=== PATIENT | male | born 1965 | race Caucasian/White ===

== ENCOUNTER 2018-06-11 07:21 | Outpatient (CLI) | payer BC ==
--- NOTE | 2018-06-11 10:05 | CT ---
CT OF ABDOMEN AND PELVIS PERFORMED WITH INTRAVENOUS CONTRAST ENHANCEMENT: History: Right lower quadrant pain. History of colon cancer in 2012 with a partial colectomy and chem otherapy. Comparison: 10-21-12 FINDINGS: The lung bases are clear. The liver and spleen are within normal limits in size and appearance. The pancreas and gallbladder re gions appear unremarkable. The right adrenal gland is normal. There is some slight nodularity to the left adrenal which is stabl e. This nodular area measures approximately 11 mm in size and is not felt to be significantly differe nt than the prior study. The right and left kidneys are normal in appearance. There are hypodensities involving both kidneys which all appear essentially stable in size. One hypodense lesion in the lowe r pole of the left kidney is increased slightly in size. CT Hounsfield unit numbers are slightly high er than typical for a cyst but given the multiplicity of these lesions it is still most likely felt t o represent cysts. There is no significant periaortic or mesenteric adenopathy. Post-operative change s of the right colon are again demonstrated. I do not see any signs of any mass or evidence of obstru ction. CT OF PELVIS PERFORMED WITH CONTRAST ENHANCEMENT: No evidence of adenopathy, mass, or free fluid. Suggestion of some slight bladder wall thickening. Th ere is a moderately prominent prostate. IMPRESSION: 1. Post-operative changes of the right colon. There is a moderate amount of stool present in the righ t colon. 2. Stable left adrenal nodule. 3. Hypodensities involving the kidneys, statistically most likely cysts. POS: [facility]
[2018-06-11] MEDS ORDERED: ISOVUE-370 76%-LOCM 1 ML ONE (10:32)
== END 2018-06-11 07:22 | disposition home or self-care (01) ==
LOC: BICCT 07:21
PROVIDERS: ATTEND Internal Medicine Gastroenterology
DX: R10.31 Right lower quadrant pain (principal); R19.4 Change in bowel habit; R19.5 Other fecal abnormalities; E27.9 Disorder of adrenal gland, unspecified; N28.89 Other specified disorders of kidney and ureter; Z85.038 Personal history of other malignant neoplasm of large intestine; Z98.890 Other specified postprocedural states
CPT/HCPCS: 74177

== ENCOUNTER 2018-12-30 13:44 | Outpatient (CLI) | payer BC ==
--- NOTE | 2018-12-30 15:32 | CT ---
CT CERVICAL SPINE WITHOUT CONTRAST: Multiplanar, multisequential imaging of the cervical spine is obtained. INDICATION: Right cervical radiculopathy. FINDINGS: The cervical vertebrae maintain normal height and alignment. There are mild degenerative changes not ed. There are mild anterior osteophytes From the cervical vertebrae. Mild loss of disk space at all levels of the cervical spine. There is no evidence of cervical spine fracture. Mild disk bulge at C2-3 mildly flattens the thecal sac. No evidence of central canal or foraminal st enosis. At C3-4, mild disk bulge effaces the anterior subarachnoid space. No evidence of cord impingement or cervical canal stenosis. Mild left foraminal narrowing due to uncinate hypertrophy. At C4-5, mild disk bulge effaces the anterior subarachnoid space. Mild left foraminal narrowing due to uncinate hypertrophy. No evidence of cervical canal stenosis. At C5-6, mild disk bulge flattens the thecal sac and effaces the anterior subarachnoid space. No sig nificant cord impingement. No significant cervical spine or foraminal stenosis. At C6-7, no significant disk bulge or spondylosis. No cervical canal or foraminal stenosis. At C7-T1, no significant abnormality apparent. IMPRESSION: Mild degenerative change of the cervical spine. Mild disk bulge at several levels as described above . POS: [facility]
== END 2018-12-30 13:45 | disposition home or self-care (01) ==
LOC: BICCT 13:44
PROVIDERS: ATTEND Internal Medicine
DX: M47.22 Other spondylosis with radiculopathy, cervical region (principal)
CPT/HCPCS: 72125